=== PATIENT | male | born 1970 | race Caucasian/White ===

== ENCOUNTER 2020-02-21 09:38 | Emergency (ER) | payer SELFPAY ==
[~2020-02-21] VITALS: Ht 188 cm; Wt 83.8 kg
[2020-02-21 09:51] VITALS: BP 145/113
--- NOTE | 2020-02-21 10:12 | NUR ---
PT AMBULATORY TO ROOM 3 AFTER PT HAD DIZZINESS, DIARRHEA X 1 WK. DENIES ANY SX AT THIS TIME BUT NEEDS COVID TEST TO RETURN TO WORK.
== END 2020-02-21 10:23 | disposition home or self-care (01) ==
LOC: ED 10:17
DX: B34.9 Viral infection, unspecified (principal); Z20.828 Contact with and (suspected) exposure to other viral communicable diseases
CPT/HCPCS: 87635; 99283